=== PATIENT | male | born 1985 | race Two or more races ===

== ENCOUNTER 2019-10-07 17:58 | Emergency (ER) | payer OTHER ==
[~2019-10-07] VITALS: Ht 188 cm; Wt 93.0 kg
[2019-10-07] MEDS ORDERED: HYDROcodone/APAP 5/325 TABLET ONE (18:04)
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
--- NOTE | 2019-10-07 18:11 | NUR ---
[employer]: PT AMBULATORY TO ROOM FROM LOBBY
[2019-10-07] MEDS ORDERED: HYDROcodone/APAP 5/325 TABLET PO ONE (18:30)
--- NOTE | 2019-10-07 18:38 | NUR ---
Patient/Caregiver given discharge instructions and they have confirmed that they understand the instructions. Patient ambulatory with steady gait.
[2019-10-07] MEDS ORDERED: PLEASE ENTER ALLERGIES MC SCH (19:00)
--- NOTE | 2019-10-07 19:38 | NUR ---
CT called, no answer at this time. Delay.
[2019-10-07] MEDS ORDERED: PROPOFOL 10 MG/ML, 20ML ONE ×3 (20:40→22:49)
--- NOTE | 2019-10-07 20:45 | NUR ---
time study technician aware made of procedural sedation. Pt to have closed reduction of left shoulder by Dr. Christian.
[2019-10-07] MEDS ORDERED: PROPOFOL 10 MG/ML, 20ML IVPush ONE ×2 (21:00→23:00)
--- NOTE | 2019-10-07 21:39 | NUR ---
Pt was given 300mg of diprivan for procedure. Procedure start time at 2099 and time out 2044. Pt Tolerated procedure well and recovered very quickly. Pt had no adverses effect to medication. PIV dc and left shoulder placed in shoulder immobilizer. Pt to leave with it on. Pt vss and nadn.
--- NOTE | 2019-10-07 21:41 | NUR ---
Patient/Caregiver given discharge instructions and they have confirmed that they understand the instructions. Patient ambulatory with steady gait. Please see procedural sedation paperwork.
--- NOTE | 2019-10-07 22:54 | NUR ---
Pt upon standing re dislocated his left shoulder. Ressuming procedural sedation again.
--- NOTE | 2019-10-08 00:04 | NUR ---
Sedation paperwork given to Shikha JACKSON and consent on chart.
--- NOTE | 2019-10-08 00:04 | NUR ---
Report to Shikha JACKSON
[2019-10-08 00:05] VITALS: BP 142/62
== END 2019-10-08 01:09 | disposition home or self-care (01) ==
LOC: ED 18:42
DX: S43.005A Unspecified dislocation of left shoulder joint, initial encounter (principal); X58.XXXA Exposure to other specified factors, initial encounter; Y93.89 Activity, other specified; Y92.89 Other specified places as the place of occurrence of the external cause; Y99.8 Other external cause status
CPT/HCPCS: 23650; 99152; 99285